=== PATIENT | male | born 1970 | race Caucasian/White ===

== ENCOUNTER → 2020-05-13 | Outpatient (CLI) | payer OTHER ==
--- NOTE | 2020-05-14 08:29 | REP ---
INDICATION: THORACIC PAIN W/ FX. COMPARISON: None. TECHNIQUE: Axial CT images with multiplanar reformations. FINDINGS: There is a pronounced thoracic kyphosis. There is advanced degenerative disc disease with loss of disc height and disc desiccation. 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 There is also chronic wedging and loss of height, up to 25%, of midthoracic vertebrae. Anterior osteophyte formation, posterior osteophyte formation, and vacuum disc phenomena noted. Posterior elements also appear fused at many levels. Disc-osteophyte complex and facet osteophytes narrow the spinal canal, appears significant at mid and lower thoracic levels. There may be cord impingement and cord compression however the degree of compression is difficult to assess on a noncontrast CT study. There is a rightward rotation of the of the axial images as the patient is positioned. The study is limited by patient motion. There appears to be a small right pleural effusion. There is linear apparent scarring from at the right base. No definite pulmonary nodules however the study is motion limited. Small hyperdensities seen in the renal pelvis bilaterally, greater on the right, is consistent with small renal stones. No evidence of hydronephrosis. Mildly hyperdense and ill-defined material seen in the gallbladder. IMPRESSION: 1. Patient rotated to the right, limiting evaluation. No definite fracture identified. 2. Advanced degenerative disc disease and osteoarthritis with diffuse compression wedging and anterior and posterior osteophyte formation and vertebral ankylosis. 3. Diffuse osteopenia. Degenerative disc disease, osteoarthritis, and osteopenia are greater than expected for age. 4. Disc-osteophyte complex and facet osteophytes narrowing the canal appears limiting although difficult to assess on noncontrast CT imaging. For example see images 64 and 81 of series 202. 5. Small, nonobstructing renal calculi bilaterally, greater on the right. 6. Small right pleural effusion with apparent scarring at the right base. 7. Suggest further evaluation with MRI or myelogram. <Electronically signed by Brayan Gaming > 05/14/20 [id number]
== END ==
LOC: M RAD 17:07
PROVIDERS: ATTEND Neurological Surgery
DX: S22.068A Other fracture of T7-T8 thoracic vertebra, initial encounter for closed fracture (principal); X58.XXXA Exposure to other specified factors, initial encounter; Y92.89 Other specified places as the place of occurrence of the external cause; Y93.89 Activity, other specified; Y99.8 Other external cause status; M25.78 Osteophyte, vertebrae; M51.34 Other intervertebral disc degeneration, thoracic region

== ENCOUNTER 2020-07-02 09:15 | Outpatient (RCR) | payer OTHER | END 2020-07-06 | LOC: M PT 09:15 | PROVIDERS: ATTEND Neurological Surgery | DX: M54.5 Low back pain (principal) ==

== ENCOUNTER 2020-07-09 10:15 | Outpatient (RCR) | payer OTHER | END 2020-08-05 | LOC: M PT 10:15 | PROVIDERS: ATTEND Neurological Surgery | DX: M54.5 Low back pain (principal) ==

== ENCOUNTER → 2020-08-12 | Outpatient (CLI) | payer OTHER ==
--- NOTE | 2020-08-12 15:17 | REP ---
INDICATION: R93.0 ABN IMAG SKULL OR HEAD S22.068A T SPINE FX. COMPARISON: None. TECHNIQUE: Helical scanning is acquired. 5 mm axial images were reformatted. Coronal MPR images were generated. FINDINGS: Bone window settings demonstrate an intact bony calvarium. There is no evidence of skull fracture or incidental bony calvarial lesion. The visualized paranasal sinuses appear clear. No intraorbital abnormality is seen. On soft tissue window setting images; the lateral, third, and fourth ventricles are normal in size and position. Gaspar-white differentiation pattern is normal above and below the tentorium. There are is no evidence of intracranial hemorrhage. No mass, edema, infarction, or midline shift is seen. No extra-axial fluid collection is appreciated. IMPRESSION: Negative noncontrast head CT. <Electronically signed by Isaac Flynn > 08/12/20 [id number]
--- NOTE | 2020-08-12 15:26 | REP ---
INDICATION: R93.0 ABN IMAG SKULL OR HEAD S22.068A T SPINE FX. Fracture of T7-T8 thoracic vertebrae. COMPARISON: None. TECHNIQUE: Helical scanning is acquired 4 mm axial images are re-formatted. Coronal and sagittal MPR images are provided. FINDINGS: There is mild old wedging of the T8 vertebral body anteriorly. Thoracic vertebral body heights are otherwise preserved. No acute fracture or subluxation is seen. There is diffuse degenerative disc disease with bridging osteophytes suggesting diffuse skeletal hyperostosis along the anterior margin of the thoracic vertebral in the mid and lower thoracic segments. There is multilevel degenerative disc narrowing. Bridging osteophytes are noted laterally at multiple levels as well. No malalignment is seen. Several of the inter spinous spaces are fused posteriorly in the mid and upper thoracic spine. In addition, there is an area of dorsal ligamentum flavum calcification and/or ossification along the midline into the right of midline in the upper thoracic spine at what appears to be T2-T3 level. There is less prominent ligamentum flavum calcification at T7-T8. There is left-sided facet hypertrophy at T12-L1. There is a fairly large peripherally calcified disc protrusion at L1-L2 in the upper lumbar spine producing central canal stenosis. Incidental note is made of bilateral intrarenal nephrolithiasis and cholelithiasis. IMPRESSION: Degenerative spondylosis changes. Old mild wedging T8. Anterior longitudinal, inter spinous ligament, and ligamentum flavum ossification. Calcified fairly large disc protrusion at L1-2 producing central canal stenosis. Cholelithiasis and bilateral intrarenal nephrolithiasis. <Electronically signed by Isaac Flynn > 08/12/20 [id number]
== END ==
LOC: M RAD 14:27
PROVIDERS: ATTEND Neurological Surgery
DX: R93.0 Abnormal findings on diagnostic imaging of skull and head, not elsewhere classified (principal); S22.068A Other fracture of T7-T8 thoracic vertebra, initial encounter for closed fracture; X58.XXXA Exposure to other specified factors, initial encounter; Y92.9 Unspecified place or not applicable